=== PATIENT | male | born 1985 | race Caucasian/White ===

== ENCOUNTER 2024-12-30 08:02 | Emergency (ER) | payer BC, SELFPAY ==
[2024-12-30 08:09] VITALS: BP 158/86; PULSE 77; RESP 17; TEMP 36.8; O2SAT 98; BMI 31.0
--- NOTE | 2024-12-30 08:10 | ED_ITS ---
HPI - Neck Pain/Injury General Chief Complaint: Neck Pain/Injury Stated Complaint: neck, shoulder right arm pain numbness in fingers Time Seen by Provider: 12/30/24 08:06 History of Present Illness HPI Narrative: 39-year-old male with a history of hypertension presents to the ED for eval uation of right neck pain/right arm pain, states it started states that he woke and was having difficulty turning his side of his head, states it felt like a muscle spasm however he states that the symptoms have not gotten any better and now feels like he is having some tingling sensation down the 1st 3 fingers on exam he is neurovascularly intact, denies any trauma or falls he is right-handed, patient denies any headache visual disturbances chest pain shortness breath fever chills nausea vomiting abdominal pain or any other GI/ symptoms at this time. Related Data Home Medications Medication Instructions Recorded Confirmed metoprolol succinate 25 mg mg PO DAILY 12/30/24 tablet,extended release 24 hr Previous Rx's Medication Instructions Recorded diazepam 5 mg tablet (Valium) 5 mg PO BID PRN muscle spasm 3 12/30/24 days #9 tabs prednisone 20 mg tablet 20 mg PO DAILY 5 days #5 tabs 12/30/24 Allergies Allergy/AdvReac Type Severity Reaction Status Date / Time No Known Drug Allergies Allergy Verified 12/30/24 08:11 Review of Systems Review of Systems Narrative: General: Denies fever, chills, weight loss HEENT: Positive right-sided neck pain, Denies headache, eye drainage, eye irritation, head trauma, sore throat, voice change Cardiovascular: Denies any chest pain, palpitations, shortness of breath, tachycardia Respiratory: Denies any shortness of breath, cough, wheeze, stridor GI/: Denies any abdominal pain, nausea, vomiting, diarrhea, bright red blood per rectum, melanotic stools, urinary frequency, urinary retention, dysuria, hematuria MSK: Denies any joint pain, muscle pains, swelling Skin: Denies any rashes, lesions, discoloration Neuro: Denies any headache, lightheadedness, dizziness, fainting, weakness Psych: Denies SI/HI Exam Narrative Exam Narrative: General: Cooperative, comfortable, well-developed, not in acute distress HEENT: Normocephalic, atraumatic, PERRLA, normal sclera, eyelids normal, Neck: Active full range of motion, atraumatic Chest: Normal to inspection, negative crepitus, no overlying erythema ecchymosis Respiratory: Normal respiratory effort, not in acute respiratory distress, clear to auscultation bilaterally negative cough, wheeze, tachypnea, rhonchi, rales Cardiology: Regular rate rhythm negative gallop, murmur, rubs GI/: Normal to inspection, soft, nonrigid, no tenderness to palpation, exam deferred MSK: Full range of active range of motion of all 4 extremities, atraumatic, tenderness to palpation over the right-sided SCM muscle, positive Spurling sign to the right, bilateral upper extremities neurovascularly intact no overlying tenderness to palpation of any bony prominences Skin: No rashes lesions noted Neuro: Alert awake oriented x3, moves all 4 extremities spontaneously, cranial nerves intact, able to answer all questions appropriately follows commands appropriately Psych: Cooperative, negative suicidal or homicidal ideations MDM - Neck Pain/Injury Differential Diagnosis Differential diagnosis: Likely strain of neck muscle and other (Cervical radiculopathy) MDM Narrative Medical decision making narrative: 39-year-old male with history of hypertension presenting for right-sided neck pain and finger tingling, states it started when he woke up on states that it feels like muscle spasm has difficulty turning his head secondary to the pain/muscle spasm in his neck, however he denies any difficulty breathing denies any headache visual disturbances denies any trauma or falls patient is right- handed, symptoms and physical exam consistent with muscle spasms/cervical radiculopathy given tenderness to palpation over the SCM muscle, he is neurovascularly intact bilateral upper and lower extremities. Patient will be given symptomatic treatment here and sent home with prescriptions informed to follow up with PCP strict return precautions were given verbalized understanding of this and agrees to being discharged home with outpatient follow up Discharge Plan Departure Patient Disposition: Home Clinical Impression: Neck muscle spasm Instructions: DI for Muscle Spasm Activity Restrictions/Additional Instructions: Please read the discharge instructions sheet carefully and bring all papers to all doctor follow-up visits, as it may contain information that your doctor may want to see. Disease processes change and evolve, if your symptoms worsen or if you develop any new symptoms that are concerning to you please return for evaluation. Your evaluation today does not show any evidence of any life- threatening/serious illnesses requiring admission to the hospital or surgery. Please follow-up with your doctor for re-evaluation in approximately 1 day. Seek immediate medical attention for any worrisome symptoms. *If you do not have a primary care provider please contact the [facility] Resource line at [phone]. They will ask some questions about your medical history and help get you set up with a doctor in the community. Prescriptions: New prednisone 20 mg tablet 20 mg PO DAILY 5 Days Qty: 5 0RF diazepam [Valium] 5 mg tablet 5 mg PO BID PRN (Reason: muscle spasm) 3 Days Qty: 9 0RF No Action metoprolol succinate 25 mg tablet extended release 24 hr PO DAILY Referrals: Miscellaneous,Doctor, MD [Primary Care Provider] - Stand Alone Forms: Patient Portal/API/Survey
[2024-12-30] MEDS: LIDOCAINE 5% PATCH 1 EACH TOP (08:18)
[2024-12-30] MEDS: KETOROLAC 30 MG/ML VIAL 15 MG IM (08:18)
[2024-12-30] MEDS: DEXAMETHASONE 10 MG/ML VIAL PO (08:18)
[2024-12-30] MEDS: diazePAM 5 MG TABLET PO (08:18)
== END 2024-12-30 08:37 | disposition home or self-care (01) ==
PROVIDERS: Emergency Provider Student in an Organized Health Care Education/Training Program; Family Provider Family Medicine
DX: M62.838 Other muscle spasm (principal); R20.2 Paresthesia of skin; I10 Essential (primary) hypertension
CPT/HCPCS: 96372; 99283; 99284; J1100; J1885

== ENCOUNTER → 2025-02-12 08:42 | Outpatient (CLI) | payer BC, SELFPAY ==
--- NOTE | 2025-02-12 08:43 | DI.MRI.S_ITS ---
PROCEDURE: MR CERVICAL SPINE WO CON INDICATIONS: chronic neck pain TECHNIQUE: Noncontrast sagittal T1 spin echo and T2 fast spin echo, sagittal STIR, foraminal oblique sagittal T2 fast spin echo, and axial gradient echo or T2 fast spin echo through the cervical spine. COMPARISON: None. FINDINGS: Image quality: Diagnostic. Alignment and Curvature: There is normal bony alignment. Bone Marrow: Marrow demonstrates normal overall signal. Spinal Cord: Visualized spinal cord has normal size and signal. No cerebellar tonsillar herniation. Paraspinous Soft Tissues: No paravertebral masses. Prevertebral soft tissues are normal in thickness. C2-C3: No significant neuroforaminal or spinal canal stenosis. C3-C4: Mild bilateral facet arthropathy. Bilateral uncovertebral osteoarthrosis. Shallow broad-based posterior disc osteophyte complex. No significant spinal canal stenosis. Moderate bilateral neuroforaminal stenosis. C4-C5: No significant neuroforaminal or spinal canal stenosis. C5-C6: Degenerative endplate changes and endplate osteophyte formation. Bilateral facet arthropathy. Bilateral uncovertebral osteoarthrosis. Prominent eccentric to the right broad-based posterior disc osteophyte complex. There is mild spinal canal stenosis without cord signal abnormality. There is severe bilateral neuroforaminal stenosis. C6-C7: Mild bilateral facet arthropathy. Degenerative endplate changes. Eccentric to the right broad-based posterior disc osteophyte complex. No significant spinal canal stenosis. Minimal bilateral neuroforaminal stenosis. C7-T1: Mild bilateral facet arthropathy. Mild degenerative endplate changes. No significant neuroforaminal or spinal canal stenosis. IMPRESSION: Cervical spine without acute abnormalities. Multilevel, multifactorial cervical spondylosis as detailed above by vertebral body level. Findings are most pronounced at C3-4, C5-6, and C6-7. Findings are most severe at C5-6. Dictated by: Harshal Bauer M.D. on 02/12/2025 at 15:52 Approved by: Harshal Bauer M.D. on 02/12/2025 at 16:11
== END ==
PROVIDERS: Family Provider Family Medicine; PCP Family Medicine; Referring Provider Family Medicine; Visit Provider Family Medicine
DX: M47.813 Spondylosis without myelopathy or radiculopathy, cervicothoracic region (principal); M47.22 Other spondylosis with radiculopathy, cervical region; M48.02 Spinal stenosis, cervical region; M54.2 Cervicalgia; G89.29 Other chronic pain
CPT/HCPCS: 72141

== ENCOUNTER 2025-11-27 09:13 | Outpatient (CLI) | payer BC, SELFPAY ==
[2025-11-27] VITALS (8 sets, daily range): BP systolic 121–146; BP diastolic 77–90; PULSE 76–89; RESP 10–20; TEMP 36.9; O2SAT 94–98
[2025-11-27] MEDS: MIDAZOLAM 2 MG/2 ML VIAL IV (10:37)
--- NOTE | 2025-11-27 10:58 | P.PCN_ITS ---
Date/Time/Diagnoses Date of procedure: 11/27/25 Time of procedure: 10:59 Pre-procedure diagnosis: 1. CERVICAL STENOSIS, 2. CERVICAL HNP WITH UPPER EXTREMITY RADICULAR FEATURES Post-procedure diagnosis: same Procedure Notes Procedure: 1. FLUORSCOPICALLY GUIDED CONTRAST CONTROLLED INTERLAMINAR EPIDURAL STEROID INJECTION - C6/7 TL TRELL Indications: Emanuel is referred by Dr. Benedict for treatment of Cervical HNP with Upper Extremity Paresthesias. Physician: Vernon Gallegos Total Fluoroscopy time (seconds): 25 Total sedation minutes: 16 Complications: none Procedure in detail & Post-procedure care: FINDINGS Cervical Stenosis due to disc deterioration and nerve root irritation and nerve root irritation DESCRIPTION OF PROCEDURE Fluoroscopically guided, contrast-controlled C6/7 translaminar epidural steroid injection with conscious sedation. Following review of allergy and review of potential side effects and complications, including, but not necessarily limited to, infection, allergic reaction, local tissue breakdown, temporary as well as permanent nerve injury, stroke, paralysis, and possible , the patient indicated that patient understood and agreed to proceed. An informed consent document was signed by the patient, witnessed by a nurse, and placed in the patient's chart. Additionally, other treatment options including modalities, medications, and physical therapy were reviewed with the patient. After review of previous anaesthesic history and IV conscious sedation the patient was deemed safe to proceed with today?s procedure with IV conscious sedation as ASA class II designation. Safety time-out was performed to confirm patient ID, procedure to be performed and site of procedure. IV sedation was accomplished with a combination of 2mg of Versed administered by the RN after DO order, titrated to patient comfort during the course of the procedure while the patient remained responsive to all verbal commands. In the prone position, following sterile prep and drape of the cervical region, the C6/7 translaminar space was identified fluoroscopically. The skin was anesthetized via a 25-gauge 1.5-inch needle with 1% lidocaine solution. At this point, a 25-gauge, 2.5-inch short bevel spinal needle was atraumatically introduced and advanced under fluoroscopic guidance into epidural space at the C6/7 translaminar space. Depth was confirmed on lateral view. Radiological data, including multiple fluoroscopic views of the cervical spine, reveal a spinal needle at the C6/7 translaminar space. Lateral views then show placement of the needle in the epidural space. Subsequent views show contrast material flowing superiorly and inferiorly in the epidural space. DSA fluoroscopy with live contrast injection, once again, confirmed no vascular or intrathecal uptake. At this point, using loss of resistance technique with saline and air, the epidural space was entered. Following negative aspiration, injection of approximately 1.5 cc of [id number]-[id number] with live fluoroscopy in the AP view confirmed epidural flow in the epidural space without vascular or intrathecal uptake observed. Subsequently, a test dose of 1 cc of 1% lidocaine solution was injected and patient was observed for two minutes without signs or symptoms of complications, including abdominal pain, shortness of breath, bilateral upper or lower extremity weakness, nausea and vomiting, prior to steroid injection. At this point, 2cc or 20mg of dexamethasone was then injected without incident. The patient tolerated the procedure well without signs or symptoms of compli cations prior to being transferred to the recovery area for further monitoring, The patient was then transferred to the recovery area where they were observed for an appropriate period of time after the injection. The patient reported a VAS score of 6 prior to the procedure and a post-procedure VAS of 0. POST OP INSTRUCTIONS The patient was provided a Pain Log to continue to record their response to the target-specific procedure prior to follow-up visit with the referring provider. Additionally, specific post-injection care instructions and a contact number to our office were provided if concerns arise regarding possible complications associated with the procedure are suspected.
== END 2025-11-27 11:27 | disposition home or self-care (01) ==
LOC: RAD 09:14
PROVIDERS: PCP Family Medicine; Referring Provider Physical Medicine & Rehabilitation; Visit Provider Physical Medicine & Rehabilitation
DX: M48.02 Spinal stenosis, cervical region (principal); M50.123 Cervical disc disorder at C6-C7 level with radiculopathy
CPT/HCPCS: 62321; 99152; J1100; J2250